=== PATIENT | male | born 1945 | race Caucasian/White ===

== ENCOUNTER 2024-03-12 09:47 | Outpatient (CLI) | payer MEDICARE, SELFPAY | END 2024-03-12 09:48 | disposition home or self-care (01) | LOC: AMB 03-14 08:53 | PROVIDERS: PCP Family Medicine; Visit Provider Student in an Organized Health Care Education/Training Program | DX: R55 Syncope and collapse (principal) | CPT/HCPCS: A0425; A0427 ==

== ENCOUNTER 2024-03-12 10:18 | Emergency (ER) | payer OTHER, SELFPAY ==
[2024-03-12] VITALS (21 sets, daily range): BP systolic 73–107; BP diastolic 54–76; PULSE 65–77; RESP 18; TEMP 37; O2SAT 99; BMI 26.1
--- NOTE | 2024-03-12 10:55 | CRLHL7_ITS ---
For Patients: As a result of the Century Cures Act, medical imaging exams and procedure reports are released immediately into your electronic medical record. You may view this report before your referring provider. If you have questions, please contact your health care provider. Indication: Syncopal episode Technique: PA and lateral views of the chest. Comparison: None. Findings: Left chest AICD with right atrial and right ventricular leads. Moderately elevated right hemidiaphragm. Normal cardiomediastinal silhouette. No focal consolidation, pleural effusions, or visualized pneumothorax. Moderate degenerative changes of the visualized spine. Nonspecific calcification in the upper abdomen seen on the lateral view. Impression: 1. No acute cardiopulmonary disease. 2. Nonspecific calcification in the upper abdomen seen on the lateral view. Dictated by Jd Vang MD @ 03/12/2024 12:01:16 PM (Electronically Signed)
--- NOTE | 2024-03-12 11:40 | ED_ITS ---
HPI - General Adult General Date Seen: 03/12/24 Chief complaint: Hypotension Stated complaint: syncope Time Seen by Provider: 03/12/24 10:47 Source: patient Mode of arrival: EMS Limitations: no limitations History of Present Illness HPI narrative: Patient is a 74-year-old male presenting to the emergency department for near syncopal episode. He was at this provider's office when he became very lightheaded and he states his vision went fuzzy. States he could hear everything her body was saying in could speak but felt like he was going to pass out. He was given something to drink at the office water trying to get in to feel better, which he states is the 1st time he ate or drank anything all day. EMS was called him prior to EMS arrival he had all the symptoms resolved. Due to his cardiac history of paroxysmal AFib, CHF, coronary artery bypass, diabetic if decided to send him to the emergency department for evaluation. He states same thing happened a year ago at the same doctor's office and symptoms resolved. He has had multiple episodes of near-syncope with the most recent being 2 weeks ago at the [facility] but states the only to worry felt like usually get a pass out were the to that occurred at the doctor's office today and last year. No associated chest pain. Denies fevers, chills, weakness, numbness, abdominal pain, diarrhea, constipation, headache. States he feels asymptomatic at this time Related Data Home Medications ?Medication ?Instructions ?Recorded ?Confirmed amiodarone 200 mg tablet 200 mg PO DAILY 03/12/24 03/12/24 apixaban 5 mg tablet (Eliquis) 5 mg PO BID 03/12/24 03/12/24 furosemide 20 mg tablet 20 mg PO DAILY 03/12/24 03/12/24 gabapentin 300 mg capsule 300 mg PO DAILY 03/12/24 03/12/24 losartan 50 mg tablet 50 mg PO DAILY 03/12/24 03/12/24 metoprolol succinate 50 mg 50 mg PO DAILY 03/12/24 03/12/24 tablet,extended release 24 hr pravastatin 80 mg tablet 80 mg PO DAILY 03/12/24 03/12/24 spironolactone 25 mg tablet 25 mg PO DAILY 03/12/24 03/12/24 tamsulosin 0.4 mg capsule 0.4 mg PO DAILY 03/12/24 03/12/24 tramadol 50 mg tablet 50 mg PO Q6H PRN 03/12/24 03/12/24 warfarin 2 mg tablet (Jantoven) PO 03/12/24 Allergies Allergy/AdvReac Type Severity Reaction Status Date / Time codeine AdvReac Intermediate Gastrointestinal Verified 03/12/24 10:34 Upset Review of Systems Status of ROS: Reports: 10 or more systems reviewed and unremarkable except as noted in History and below PFSH PFS Social History Smoking Status: Never smoker How often do you have a drink containing alcohol: never AUDIT-C Alcohol total score: 0 Non-prescribed substance use: denies use Exam Narrative: Exam Narrative: Const: Well-nourished, Well-developed, in no distress Eyes: PERRL, no conjunctival injection, and symmetrical lids HENT: Atraumatic external nose and ears. Moist mucous membranes. Neck: Symmetric, trachea midline, No thyromegaly. CVS: RRR, No murmurs or gallops. Peripheral pulses 2+ and equal in all extremities RESP: Unlabored respiratory effort. Clear to auscultation bilaterally. GI: Nontender/Nondistended, No rebound or guarding. MSK:Extremities w/o deformity, Normal Active ROM Skin: Warm, Dry. No rashes or lesions. Neuro: Normal Muscle tone, No focal neurological deficits. Psych: Awake, Alert, & Oriented x3. Appropriate mood and affect. Const: Vital Signs, click to edit/add: Vital Signs - 24 hr 03/12/24 10:32 03/12/24 10:34 03/12/24 11:02 Temperature 98.6 F Pulse Rate [Pulse Oximeter] 72 Pulse Rate [orthos tatic lying Blood Pressure Cuff] Pulse Rate [orthos tatic sitting Bloo d Pressure Cuff] Pulse Rate [orthos tatic standing Blo od Pressure Cuff] Respiratory Rate 18 Blood Pressure 98/62 104/70 Blood Pressure [Ri ght Upper Arm] 107/76 Blood Pressure [or thostatic lying Ri ght Arm] Blood Pressure [or thostatic sitting Right Arm] Blood Pressure [or thostatic standing Right Arm] Pulse Oximetry 99 Oxygen Delivery Me thod Room Air 03/12/24 11:03 03/12/24 11:05 03/12/24 11:09 Temperature Pulse Rate [Pulse Oximeter] Pulse Rate [orthos tatic lying Blood Pressure Cuff] 73 Pulse Rate [orthos tatic sitting Bloo d Pressure Cuff] 68 Pulse Rate [orthos tatic standing Blo od Pressure Cuff] 72 Respiratory Rate Blood Pressure 92/60 73/54 L Blood Pressure [Ri ght Upper Arm] Blood Pressure [or thostatic lying Ri ght Arm] 104/70 Blood Pressure [or thostatic sitting Right Arm] 92/60 Blood Pressure [or thostatic standing Right Arm] 73/54 L Pulse Oximetry Oxygen Delivery Me thod 03/12/24 11:32 03/12/24 12:02 03/12/24 12:32 Temperature Pulse Rate [Pulse Oximeter] Pulse Rate [orthos tatic lying Blood Pressure Cuff] Pulse Rate [orthos tatic sitting Bloo d Pressure Cuff] Pulse Rate [orthos tatic standing Blo od Pressure Cuff] Respiratory Rate Blood Pressure 93/58 L 102/71 100/66 Blood Pressure [Ri ght Upper Arm] Blood Pressure [or thostatic lying Ri ght Arm] Blood Pressure [or thostatic sitting Right Arm] Blood Pressure [or thostatic standing Right Arm] Pulse Oximetry Oxygen Delivery Me thod 03/12/24 12:48 03/12/24 12:50 03/12/24 12:53 Temperature Pulse Rate [Pulse Oximeter] Pulse Rate [orthos tatic lying Blood Pressure Cuff] 77 Pulse Rate [orthos tatic sitting Bloo d Pressure Cuff] 76 Pulse Rate [orthos tatic standing Blo od Pressure Cuff] 65 Respiratory Rate Blood Pressure 102/60 90/69 Blood Pressure [Ri ght Upper Arm] Blood Pressure [or thostatic lying Ri ght Arm] 88/58 L Blood Pressure [or thostatic sitting Right Arm] 90/69 Blood Pressure [or thostatic standing Right Arm] 102/60 Pulse Oximetry Oxygen Delivery Me thod 03/12/24 12:54 03/12/24 13:00 03/12/24 13:02 Temperature Pulse Rate [Pulse Oximeter] Pulse Rate [orthos tatic lying Blood Pressure Cuff] Pulse Rate [orthos tatic sitting Bloo d Pressure Cuff] Pulse Rate [orthos tatic standing Blo od Pressure Cuff] Respiratory Rate Blood Pressure 88/58 L 105/66 97/63 Blood Pressure [Ri ght Upper Arm] Blood Pressure [or thostatic lying Ri ght Arm] Blood Pressure [or thostatic sitting Right Arm] Blood Pressure [or thostatic standing Right Arm] Pulse Oximetry Oxygen Delivery Ms thod 03/12/24 13:02 03/12/24 13:02 03/12/24 13:02 Temperature Pulse Rate [Pulse Oximeter] Pulse Rate [orthos tatic lying Blood Pressure Cuff] Pulse Rate [orthos tatic sitting Bloo d Pressure Cuff] Pulse Rate [orthos tatic standing Blo od Pressure Cuff] Respiratory Rate Blood Pressure 97/63 97/63 97/63 Blood Pressure [Ri ght Upper Arm] Blood Pressure [or thostatic lying Ri ght Arm] Blood Pressure [or thostatic sitting Right Arm] Blood Pressure [or thostatic standing Right Arm] Pulse Oximetry Oxygen Delivery Ms thod 03/12/24 13:31 03/12/24 14:02 03/12/24 14:03 Temperature Pulse Rate [Pulse Oximeter] Pulse Rate [orthos tatic lying Blood Pressure Cuff] Pulse Rate [orthos tatic sitting Bloo d Pressure Cuff] Pulse Rate [orthos tatic standing Blo od Pressure Cuff] Respiratory Rate Blood Pressure 107/65 105/72 97/65 Blood Pressure [Ri ght Upper Arm] Blood Pressure [or thostatic lying Ri ght Arm] Blood Pressure [or thostatic sitting Right Arm] Blood Pressure [or thostatic standing Right Arm] Pulse Oximetry Oxygen Delivery Ms thod 03/12/24 14:05 03/12/24 14:12 Temperature Pulse Rate [Pulse Oximeter] Pulse Rate [orthos tatic lying Blood Pressure Cuff] 71 Pulse Rate [orthos tatic sitting Bloo d Pressure Cuff] 71 Pulse Rate [orthos tatic standing Blo od Pressure Cuff] 75 Respiratory Rate Blood Pressure 89/55 L Blood Pressure [Ri ght Upper Arm] Blood Pressure [or thostatic lying Ri ght Arm] 105/72 Blood Pressure [or thostatic sitting Right Arm] 97/65 Blood Pressure [or thostatic standing Right Arm] 89/55 L Pulse Oximetry Oxygen Delivery Ms thod Course Vital Signs Vital signs: Initial Vital Signs Blood Pressure 98/62 03/12/24 10:32 Blood Pressure Mean 74 03/12/24 10:32 Vital Signs Blood Pressure 98/62 03/12/24 10:32 Temperature 98.6 F 03/12/24 10:34 Pulse Rate 71 03/12/24 14:12 Respiratory Rate 18 03/12/24 10:34 Blood Pressure 105/72 03/12/24 14:12 Pulse Oximetry 99 03/12/24 10:34 Oxygen Delivery Method Room Air 03/12/24 10:34 Medications Administered Medications: Discontinued Medications Generic Name Dose Route Start Last Admin Trade Name Isabel PRN Reason Stop Dose Admin Lactated Ringer's 1,000 mls @ 1,000 mls/hr 03/12/24 11:09 03/12/24 13:54 Lactated Ringers 1000 Ml IV 03/12/24 12:08 Infused .Q1H ONE Infusion Medical Decision Making MDM Narrative Medical decision making narrative: Patient is 78-year-old male presenting to the emergency department for near syncopal episode. His blood pressure is relatively soft and symptoms could have been from dehydration. Patient did not want an IV initially and I will let him try oral fluids. Were also check a CBC, BMP, magnesium, COVID/flu/RSV, BNP, troponin, EKG, urinalysis. Chest x-ray ordered. Orthostatic blood pressures were done and he became hypotensive but was not symptomatic with that. I spoke to him again I believe IV fluids are needed and he is agreeable to receive fluids at this time. His lab work came back the white count of 12.6 by see no clear and obvious signs of infection. Chest x-ray showed no signs of CHF or any other concerning abnormalities. Is reviewed by myself and the radiologist. Magnesium came back slightly low at 1.4 but this is unlikely to be causing his symptoms but will be replenished. BNP is elevated at 2620. Creatinine is slightly elevated at 1.6. His baseline is around 1.3. This also makes me think part of his symptoms are dehydration. COVID/flu/RSV is negative. After the IV fluids I did another round of orthostatic blood pressures and well be technically did not meet criteria for orthostatic hypertension his blood pressure did drop down to 89/55 again standing. He was asymptomatic at this time. I did speak to [facility] who he sees for his heart on if they want me to adjust any medications at this time they do not want any medication adjustments as it may cause worse issues for his heart. I was informed that many people with this bad heart failure may live with blood pressures in this range. He will be discharged at this time though and they are agreeable to this plan. Lab Data Labs: Lab Results 03/12/24 03/12/24 Range/Units 11:00 11:30 WBC 12.60 H (4.50-11.00) K/uL RBC 4.42 (4.30-5.90) m/uL Hgb 13.5 (13.5-17.5) gm/dL Hct 42.7 (37.0-53.0) % MCV 97 (80-100) fL MCH 31 (26-34) pg MCHC 32 (32-36) gm/dL RDW Coeff of Priscila 15.0 (11.5-15.5) % Plt Count 142 (140-440) K/uL Neut % (Auto) 83.0 H (42.0-72.0) % Lymph % (Auto) 8.2 L (20-44) % [place] % (Auto) 6.6 (0.0-11.0) % Eos % (Auto) 1.5 (0.0-7.0) % Baso % (Auto) 0.3 (0.0-3.0) % Neut # (Auto) 10.50 H (1.7-7.0) K/uL Lymph # (Auto) 1.00 (0.90-2.90) K/uL [place] # (Auto) 0.80 (0.00-0.90) K/UL Eos # (Auto) 0.20 (0.00-0.50) K/uL Baso # (Auto) 0.00 (0.00-0.30) K/uL Abs Immat Gran (auto) 0.10 (0.00-0.30) K/uL Imm/Tot Granulo (auto) 0.4 % Sodium 139 (135-149) mmol/L Potassium 4.4 (3.6-5.1) mmol/L Chloride 112 (96-114) mmol/L Carbon Dioxide 21 (20-32) mmol/L Anion Gap 6 L (7-15) mEq/L BUN 40 H (7-30) mg/dL Creatinine 1.6 H (0.5-1.5) mg/dL Estimated Creat Clear 39.87 Estimated GFR 44 ml/min Glucose 99 (60-115) mg/dL Calcium 8.0 L (8.4-10.6) mg/dL Magnesium 1.4 L (1.5-2.6) mg/dL Troponin I 0.02 (0.01-0.04) ng/mL NT-Pro-B Natriuret Pep 2620 pg/mL SARS-CoV-2 (PCR) Negative SARS-CoV-2 (Negative) Influenza Type A (PCR) Negative PCR FLU A (Negative) Influenza Type B (PCR) Negative PCR FLU B (Negative) RSV (PCR) Negative PCR RSV (Negative) Imaging Data Chest x-ray: Attestation: I have reviewed the pertinent imaging results. Radiologist's impression: 1. No acute cardiopulmonary disease. 2. Nonspecific calcification in the upper abdomen seen on the lateral view. Dictated by Jd Vang MD @ 03/12/2024 12:01:16 PM ECG Data Interpretation: AFib with occasional PVC with a rate of 70 beats per minute, left axis deviation, normal QT, no ST or T-wave abnormalities Discharge Plan Discharge Clinical Impression: Orthostatic hypotension, Near syncope Patient Disposition: Home, Self-Care Condition: Stable Instructions: Near Syncope (ED) Additional Instructions: Your blood pressure take become low emergency department when he stood up. This noticed orthostatic hypotension. 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 Is recommend to be very careful when you are up and moving around in to try compression stockings to help with some of fluid in your legs back in to the rest of your circulatory system. Return to emergency department for new or worsening s ymptoms. Prescriptions: No Action losartan 50 mg tablet 50 mg PO DAILY amiodarone 200 mg tablet 200 mg PO DAILY metoprolol succinate 50 mg tablet extended release 24 hr 50 mg PO DAILY tramadol 50 mg tablet 50 mg PO Q6H PRN spironolactone 25 mg tablet 25 mg PO DAILY pravastatin 80 mg tablet 80 mg PO DAILY tamsulosin 0.4 mg capsule 0.4 mg PO DAILY warfarin [Jantoven] 2 mg tablet PO gabapentin 300 mg capsule 300 mg PO DAILY furosemide 20 mg tablet 20 mg PO DAILY Eliquis 5 mg tablet 5 mg PO BID Follow Up/Referrals: Carlos Harvey MD [Primary Care Provider] - Stand Alone [facility] Info Instructions
[2024-03-12] MEDS: LACTATED RINGERS 1000 ML 1,000 ML IV (11:51)
[2024-03-12 11:58] LABS: PCR FLU A Negative PCR FLU A (Negative); PCR FLU B Negative PCR FLU B (Negative); PCR RSV Negative PCR RSV (Negative); SARS PCR* Negative SARS-CoV-2 (Negative)
[2024-03-12 12:02] LABS: Basophils Percent Auto 0.3 % (0.0-3.0); Eosinophils Percent Auto 1.5 % (0.0-7.0); Hematocrit 42.7 % (37.0-53.0); Hemoglobin* 13.5 gm/dL (13.5-17.5); Immature Granulocytes Pct Auto 0.4 %; Lymphocytes Percent Auto 8.2 % (20-44); Mean Corpuscular HGB Conc 32 gm/dL (32-36); Mean Corpuscular Hemoglobin 31 pg (26-34); Mean Corpuscular Volume 97 fL (80-100); Monocytes Percent Auto 6.6 % (0.0-11.0); Platelet Count* 142 K/uL (140-440); Red Blood Count 4.42 m/uL (4.30-5.90)
[2024-03-12 12:04] LABS: Slide Review Reflex No
[2024-03-12 12:21] LABS: Chloride* 112 mmol/L (96-114); Potassium* 4.4 mmol/L (3.6-5.1); Sodium* 139 mmol/L (135-149)
[2024-03-12 12:23] LABS: Creatinine* 1.6 mg/dL (0.5-1.5); Est. Creatinine Clearance* 39.87; Estimated Glomerular Filt Rate 44 ml/min
[2024-03-12 12:24] LABS: Anion Gap 6 mEq/L (7-15); Blood Urea Nitrogen* 40 mg/dL (7-30); Carbon Dioxide* 21 mmol/L (20-32); Glucose* 99 mg/dL (60-115)
[2024-03-12 12:25] LABS: Magnesium* 1.4 mg/dL (1.5-2.6)
[2024-03-12 12:36] LABS: Troponin I* 0.02 ng/mL (0.01-0.04)
[2024-03-12 12:40] LABS: NT Pro B Type NatriureticPept* 2620 pg/mL
[2024-03-12] MEDS: MAGNESIUM OXIDE 400 MG TABLET PO (14:37)
== END 2024-03-12 14:38 | disposition home or self-care (01) ==
PROVIDERS: Emergency Provider Student in an Organized Health Care Education/Training Program; PCP Family Medicine
DX: I95.1 Orthostatic hypotension (principal)
CPT/HCPCS: 36415; 71046; 80048; 81001; 83735; 83880; 84484; 85025; 87631; 93005; 99283; 99284; A9270; J7120